=== PATIENT | male | born 1955 | race Caucasian/White ===

== ENCOUNTER 2017-06-21 11:33 | Emergency (ER) | payer OTHER | END 2017-06-21 12:04 | disposition home or self-care (01) | LOC: NAV ERS 11:33 | DX: G54.6 Phantom limb syndrome with pain (principal); I10 Essential (primary) hypertension; Z79.899 Other long term (current) drug therapy; Z86.73 Personal history of transient ischemic attack (TIA), and cerebral infarction without residual deficits | CPT/HCPCS: 99283 ==

== ENCOUNTER 2017-08-31 19:02 | Emergency (ER) | payer OTHER ==
[2017-08-31] MEDS ORDERED: Ketorolac Tromethamine 30 MG/ML VIAL ONE (19:57)
--- NOTE | 2017-08-31 20:53 | CT ---
CT OF THE LEFT ELBOW: Date: 08/31/17 COMPARISON: None. HISTORY: Pain. TECHNIQUE: Serial axial CT imaging at 3.75 mm intervals obtained through the left elbow joint without contrast. Coronal and sagittal reformatted imaging obtained. FINDINGS: Soft tissues of the elbow joint are not optimally assessed on routine CT. The imaged humerus demonstr ates no acute fracture. The imaged ulna and radius demonstrate no acute fracture. No significant elbo w joint effusion is apparent. No subcutaneous gas or fluid collection seen. The radial head appears intact. There is a corticated osseous fragment adjacent to the medial epicond yle of the distal humerus suggesting the sequelae of prior trauma. There is mild increased density within the subcutaneous fat posterior to the olecranon/proximal ulna which could be secondary to mild inflammatory change or post-traumatic change in this region. IMPRESSION: There is mild increased density in the subcutaneous fat adjacent to the olecranon process. There is n o acute fracature or dislocation. If symptoms persist, follow-up MRI suggested. POS: THO
[2017-08-31] MEDS ORDERED: hydrALAZINE 20 MG/ML VIAL ONE (20:54)
== END 2017-08-31 21:27 | disposition home or self-care (01) ==
LOC: NAV ERS 19:02
DX: M25.522 Pain in left elbow (principal); I10 Essential (primary) hypertension; Z86.73 Personal history of transient ischemic attack (TIA), and cerebral infarction without residual deficits; E78.5 Hyperlipidemia, unspecified; Z79.899 Other long term (current) drug therapy
CPT/HCPCS: 96372; J0360; J1885